=== PATIENT | female | born 1945 | race Caucasian/White ===

== ENCOUNTER 2016-10-22 16:26 | Outpatient (CLI) | payer MEDICARE, BC | END 2016-10-22 17:35 | LOC: D.MAMMO 16:26 | DX: Z12.31 Encounter for screening mammogram for malignant neoplasm of breast (principal) ==

== ENCOUNTER → 2018-04-28 08:13 | Outpatient (CLI) | payer MEDICARE, BC | END | disposition home or self-care (01) | LOC: D.LAB 08:13 | DX: R19.7 Diarrhea, unspecified (principal) ==

== ENCOUNTER 2018-10-04 09:30 | Outpatient (CLI) | payer MEDICARE, BC | END 2018-10-04 10:00 | disposition home or self-care (01) | LOC: D.MAMMO 09:30 | PROVIDERS: ATTEND Family Medicine | DX: Z12.31 Encounter for screening mammogram for malignant neoplasm of breast (principal) ==

== ENCOUNTER 2018-10-26 11:00 | Outpatient (CLI) | payer MEDICARE, BC | END 2018-10-26 11:30 | disposition home or self-care (01) | LOC: D.MAMMO 11:00 | PROVIDERS: ATTEND Family Medicine | DX: R92.8 Other abnormal and inconclusive findings on diagnostic imaging of breast (principal) ==

== ENCOUNTER → 2019-03-13 10:09 | Outpatient (CLI) | payer MEDICARE, BC ==
--- NOTE | 2019-03-14 16:04 | EC ---
PATIENT:JATINDER ELDER DATE OF SERVICE: 03/13/19 SEX: F MEDICAL RECORD: [id number] DATE OF : 43 LOCATION:[facility] AGE OF PATIENT: 73 ADMISSION DATE: 03/13/19 REFERRING PHYSICIAN: INTERPRETING PHYSICIAN: GUNNER GONSALES MD ECHOCARDIOGRAM REPORT ECHO CHARGES 4 ECHO COMPLETE Date: 03/13/19 CLINICAL DIAGNOSIS: ASSESS EF AND VALVES HX OF HTN ECHOCARDIOGRAPHIC MEASUREMENTS (adult normal given) AC root (d.<3.7cm) 2.7 cm LV Septum d (<1.2 cm> 1.4 cm Valve Excursion 1.6 cm LV Septum (systole) 1.6 cm Left Atria (s.<4.0cm> 3.2 cm LVPW d(<1.2cm) 1.2 cm RV (d.<2.3cm) 2.7 cm LVPW (sytole) 1.6 cm LV diastole(<5.6CM) 4.7 cm MV E-F(>70mm/sec) cm LV systole 3.2 cm LVOT Diameter 1.7 cm MV exc.(>10mm) 1.8 cm Est.ejection fraction (50-75%) % DOPPLER: LVIT cm/sec A 100.0cm/sec E 78.0 cm/sec LA cm/sec RVSP 34 mmHg LVOT 114 cm/sec AOP1/2T m/s Asc. Ao 150 cm/sec RVOT 50 cm/sec RA cm/sec PA 79 cm/sec AV Gradient Peak 9.00 mmHg AV Mean 5.12 mmHg AV Area 1.9 cm MV Gradient Peak 5.05 mmHg MV Mean 1.93 mmHg MV Area cm COMMENTS: Assistant Vice President: 2 JENY VAUGHN Pipe Recovery Specialist: 3 Dr. Crespo TAPE# PACS Pericardial Effusion N DATE OF SERVICE: Adequate 2D, color flow, spectral Doppler, and M-mode. LVH is present. LV internal dimensions are normal. Wall motion is normal. EF is greater than or equal to 55%. Aortic valve is tricuspid. No evidence of stenosis by Doppler interrogation. Left atrium is normal at 3.2 cm. Mitral valve shows no prolapse. Physiologic MR. Right-sided chambers are grossly normal. Trace TR. ECHOCARDIOGRAM REPORT [id number] JATINDER ELDER N TRANSINT:[id number] Voice Confirmation ID: [id number] DOCUMENT ID: [id number] GUNNER GONSALES MD at 1604 CC: [id number] DICTATION DATE: 03/13/19 141 INCOME TAX CONSULTANT: 03/13/19 1423 DEP CLI 03/13/19 [place] [id number] [place] [id number]
== END | disposition home or self-care (01) ==
LOC: D.LAB 04-27 10:45 → D.ECHO 01-02 10:45
PROVIDERS: ATTEND Internal Medicine Cardiovascular Disease
DX: E78.5 Hyperlipidemia, unspecified (principal); I10 Essential (primary) hypertension; R07.2 Precordial pain